=== PATIENT | female | born 1995 | race Caucasian/White ===

== ENCOUNTER 2021-05-24 20:26 | Emergency (ER) | payer BC, OTHER ==
[2021-05-24] MEDS ORDERED: Ondansetron 4 MG/2 ML SDV IVPUSH ONE (20:57)
[2021-05-24] MEDS ORDERED: HYDROmorphone 0.5 MG/0.5 ML Syringe IVPUSH ONE ×2 (20:57→22:05)
[2021-05-24] MEDS ORDERED: Dextrose 5%-0.9% NaCl 1,000 ML IV SCH (21:00)
--- NOTE | 2021-05-24 21:02 | EDM.PDOC ---
ED HPI GENERAL MEDICAL PROBLEM - General Chief Complaint: Lower Extremity Injury/Pain Stated Complaint: INJURED RIGHT ANKLE Time Seen by Provider: 05/24/21 20:59 Source of Information: Reports: Patient History Limitations: Reports: No Limitations - History of Present Illness INITIAL COMMENTS - FREE TEXT/NARRATIVE: 25-year-old female presents to the ED for evaluation of acute injury to her right ankle and lower extremity. Her was working on something in fell backwards landing directly on her right lower leg and ankle. Injury occurred about half an hour ago. She is unable to put any weight on the right foot at all. On examination there is obvious deformity at the ankle. Onset: Today, Sudden Onset Date: 05/24/21 Onset Time: 20:25 Duration: Minutes: Location: Reports: Lower Extremity, Right (Acute injury to the right lower extremity involving tib-fib and ankle) Quality: Reports: Ache, Throbbing Severity: Severe Improves with: Reports: None Worsens with: Reports: Movement Context: Reports: Trauma ( accidentally 4 tripped and fell backwards directly landing on her right ankle and foot while she was seated). 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 - Infectious Disease History Infectious Disease History: Reports: Herpes Social & Family History - Family History Family Medical History: No Pertinent Family History - Caffeine Use Caffeine Use: Reports: Coffee, Soda - Living Situation & Occupation Living situation: Reports: Occupation: Unemployed Review of Systems - Review of Systems Review Of Systems: See Below Constitutional: Reports: No Symptoms Eyes: Reports: No Symptoms Ears: Reports: No Symptoms Nose: Reports: No Symptoms Mouth/Throat: Reports: No Symptoms Respiratory: Reports: No Symptoms Cardiovascular: Reports: No Symptoms GI/Abdominal: Reports: No Symptoms Genitourinary: Reports: No Symptoms Musculoskeletal: Reports: No Symptoms Skin: Reports: No Symptoms Neurological: Reports: No Symptoms Psychiatric: Reports: No Symptoms ED EXAM, GENERAL - Physical Exam Exam: See Below Exam Limited By: No Limitations General Appearance: Alert, WD/WN, Mild Distress, Other Respiratory/Chest: No Respiratory Distress, Lungs Clear, Normal Breath Sounds, No Accessory Muscle Use Cardiovascular: Normal Peripheral Pulses, Regular Rate, Rhythm, No Edema, No Gallop, No Murmur, No Rub Peripheral Pulses: 3+: Carotid (L), Carotid (R), Posterior Tibial (L), Posterior Tibial (R), Dorsalis Pedis (L), Dorsalis Pedis (R) Extremities: Other (Examination of the right lower extremity shows no pain on palpation of the proximal fibular head. Pain midshaft of the tib-fib with crepitus. Obvious deformity right ankle suggesting fracture of the distal tibia and fibula.) Neurological: Alert ( Pulses are intact.), Oriented, CN II-XII Intact, Normal Cognition Psychiatric: Other Skin Exam: Warm (In a good deal of pain.), Dry, Intact, Normal Color, No Rash ED TRAUMA EXTREMITY PROCEDURES - Splinting Right Lower Extremity Splint Site: Low knee Ortho-Glass splint Pre-Procedure NV Status: Normal Post-Procedure NV Status: Normal Splint Material: Fiberglass Splint Design: Stirrup, Posterior Applied & Form Fitted By: Provider Provider Post-Splint Application NV Check: NV Status Normal Complications: No Course - Vital Signs Last Recorded V/S: Last Vital Signs Temp 36.7 C 05/24/21 21:04 Pulse 103 H 05/24/21 21:04 Resp 20 05/24/21 21:04 BP 106/66 05/24/21 21:04 Pulse Ox 98 05/24/21 21:04 - Orders/Labs/Meds Orders: Active Orders 24 hr Category Date Time Status Ankle Min 3V Rt [CR] Stat Exams 05/24/21 20:58 Taken Tibia Fibula Rt [CR] Stat Exams 05/24/21 20:56 Taken Durable Medical Equipment for Discharge [DME for Oth 05/24/21 22:26 Ordered Discharge] [COMM] Stat Meds: Medications Discontinued Medications Generic Name Dose Route Start Last Admin Trade Name Freq PRN Reason Stop Dose Admin Hydromorphone HCl 0.5 mg 05/24/21 20:57 05/24/21 21:33 Hydromorphone 0.5 Mg/0.5 Ml Syringe IVPUSH 05/24/21 20:58 0.5 mg ONETIME ONE Administration Hydromorphone HCl 0.5 mg 05/24/21 22:05 05/24/21 22:11 Hydromorphone 0.5 Mg/0.5 Ml Syringe IVPUSH 05/24/21 22:06 0.5 mg ONETIME ONE Administration Dextrose/Sodium Chloride 1,000 mls @ 150 mls/hr 05/24/21 21:00 05/24/21 21:33 Dextrose 5%-Normal Saline IV 150 mls/hr ASDIRECTED ANITA Administration Lorazepam 0.5 mg 05/24/21 22:06 05/24/21 22:11 Lorazepam 2 Mg/Ml Sdv IV 05/24/21 22:07 0.5 mg ONETIME ONE Administration Ondansetron HCl 4 mg 05/24/21 20:57 05/24/21 21:33 Ondansetron 4 Mg/2 Ml Sdv IVPUSH 05/24/21 20:58 4 mg ONETIME ONE Administration - Radiology Interpretation Free Text/Narrative:: 25-year-old female presents to the ED with an acute injury to her right lower extremity. Her was working on something and tripped and fell backwards landing directly on her right lower extremity and ankle. She heard and felt a crack and is unable to weight-bear. Clinically she has a fracture of the distal tibia and fibula. X-rays of the fibula and tibia to be done as well as ankle x-rays. Given Dilaudid 0.5 mg IV with Reglan 7.5 mg IV for acute pain relief. IV fluids will be D5 normal saline at 150 mils per hour. - Re-Assessments/Exams Free Text/Narrative Re-Assessment/Exam: 05/24/21 22:08 Patient has suffered a fracture of the distal tib-fib with displacement. Will repeat Dilaudid 0.5 mg IV and Ativan 0.5 mg IV to provide further pain relief. She will require placement in a posterior Ortho-Glass slab splint and stirrup splint to maintain position of fractures until follow-up with orthopedic surgeon Dr. Khoury early next week. 05/24/21 22:44 Patient was placed in an Ortho-Glass posterior slab splint and stirrup splint to maintain current position of fracture distal fibula and tibia which will require surgical management with orthopedic surgery next week. Patient tolerated the procedure very well. She will be discharged home on crutches. Percocet tabs 5/325 mg strength 1 or 2 every 4-6 hour as needed for pain relief. I will have her call Dr. Khoury's office early next week to arrange an appointment for consultation and arranging definitive surgical management. Discharged on Percocet tabs 5 to 25 mg strength 1-2 every 4-6 hours necessary for pain relief x20 tabs. Medication was dispensed through the [employer]Pad machine. Departure - Departure Time of Disposition: 23:20 Disposition: Home, Self-Care 01 Condition: Fair Clinical Impression: Closed fracture of tibia AND fibula Closed fracture of distal end of right fibula and tibia Qualifiers: Encounter type: initial encounter Qualified Code(s): S82.831A - Other fracture of upper and lower end of right fibula, initial encounter for closed fracture - Discharge Information *PRESCRIPTION DRUG MONITORING PROGRAM REVIEWED*: Not Applicable *COPY OF PRESCRIPTION DRUG MONITORING REPORT IN PATIENT BITA: Not Applicable Prescriptions: oxyCODONE HCl/Acetaminophen [Percocet 5-325 mg Tablet] 1 - 2 each PO Q4H PRN #20 tablet PRN Reason: pain relief. Instructions: Cast or Splint Care, Adult, [id number], Tibial Fracture, Adult, [id number] Referrals: PCP,None [Primary Care Provider] - Forms: ED Department Discharge Additional Instructions: Evaluation in the emergency room tonight in regards to injuries to your lower right leg that occurred from blunt trauma. X-rays reveal a fracture of the distal fibula and tibia. You were given medication in the ER for pain relief. Ortho-Glass posterior slab and stirrup splint placed to main position of current fractures. You will require definitive management with orthopedic surgical treatment. Please phone Dr. Khoury's office Wednesday to arrange an appointment for consultation and arranging for surgical time. His phone number is [phone] the interim you are to be nonweightbearing crutch walking only. Right leg should be elevated on a couple of pillows ideally above the level of your heart for the next 2 days to help reduce swelling. Pain medication to be Percocet tabs 5/325 mg strength 1 or 2 tablets every 4-6 hours necessary for pain relief ideally with some food in your stomach. May also use Motrin 600 mg every 6 hours to reduce pain and inflammation. Suggest use of MiraLAX powder 17 g or 1 scoop daily to prevent constipation from the narcotic pain medication. Sepsis Event Note (ED) - Focused Exam Vital Signs: Vital Signs Temp Pulse Resp BP Pulse Ox 05/24/21 21:04 36.7 C 103 H 20 106/66 98 - My Orders Last 24 Hours: My Active Orders 05/24/21 20:56 Tibia Fibula Rt [CR] Stat 05/24/21 20:58 Ankle Min 3V Rt [CR] Stat 05/24/21 22:26 Durable Medical Equipment for Discharge [DME for Discharge] [COMM] Stat - Assessment/Plan Last 24 Hours: My Active Orders 05/24/21 20:56 Tibia Fibula Rt [CR] Stat 05/24/21 20:58 Ankle Min 3V Rt [CR] Stat 05/24/21 22:26 Durable Medical Equipment for Discharge [DME for Discharge] [COMM] Stat
[2021-05-24 21:05] VITALS: BP 106/66; PULSE 103
[2021-05-24] MEDS ORDERED: LORazepam 2 MG/ML SDV IV ONE (22:06)
--- NOTE | 2021-05-27 10:20 | CR ---
Right tibia and fibula: AP and lateral views of the right tibia and fibula were obtained. Comparison: Prior ankle study performed on the same day. Fractures are seen within the distal diaphysis of the tibia and fibula. There is extension of the tibial fracture into the metaphysis. Angulation and mild displacement is seen. Lateral tibial plateau is minimally deformed which may be positional but difficult to exclude a fracture in this area. No additional abnormality is appreciated. Impression: 1. Distal tibial and fibular fractures. 2. Soft tissue swelling. 3. Minimal deformity of the lateral tibial plateau which may be positional but difficult to exclude injury if patient is symptomatic to this area. If symptoms are present to the knee, CT study is then recommended. Diagnostic code #3
--- NOTE | 2021-05-27 10:20 | CR ---
Right ankle: 3 views of the right ankle were obtained. Comparison: No prior ankle study is available. Fracture is noted within the distal fibular diaphysis as well as distal tibial diaphysis with extension into the metaphysis. There is angulation and mild displacement being seen within both fractures. Slight comminution is noted within both fractures. Diffuse soft tissue swelling is noted. Ankle mortise remains intact. Impression: 1. Distal tibial and fibular fractures with displacement and angulation. 2. Diffuse soft tissue swelling. Diagnostic code #3
== END 2021-05-24 23:20 | disposition home or self-care (01) ==
LOC: JD.ED 20:26
DX: S82.831A Other fracture of upper and lower end of right fibula, initial encounter for closed fracture (principal); S82.391A Other fracture of lower end of right tibia, initial encounter for closed fracture; W01.0XXA Fall on same level from slipping, tripping and stumbling without subsequent striking against object, initial encounter
CPT/HCPCS: 29505; 73590; 73610; 96374; 96375; 96376; 99283; J1170; J2060; J2405; J7042; 29515; 99284

== ENCOUNTER 2021-05-26 09:51 | Emergency (ER) | payer BC ==
--- NOTE | 2021-05-26 10:23 | EDM.PDOC ---
ED HPI GENERAL MEDICAL PROBLEM - General Chief Complaint: Lower Extremity Injury/Pain Stated Complaint: RT ANKLE PAIN /MEDS CAUSING NAUSEA/ NOT HELPING Time Seen by Provider: 05/26/21 10:22 Source of Information: Reports: Patient History Limitations: Reports: No Limitations - History of Present Illness INITIAL COMMENTS - FREE TEXT/NARRATIVE: 25-year-old female presents to the ED primarily with increased pain right lower extremity. Patient was diagnosed with a fracture distal tib-fib with displacement on May 24 through our emergency department. She was placed in an Ortho-Glass posterior slab and stirrup splint. She is finding the pain medication not quite strong enough to provide pain relief but also causing nausea and vomiting. Onset: Sudden Onset Date: 05/24/21 (Blunt trauma with her falling on her leg accidentally causing fracture of the distal tib-fib) Duration: Day(s):, Constant (With oral Percocet) Location: Reports: Lower Extremity, Right (Fractured tib-fib with displacement) Quality: Reports: Ache, Throbbing Severity: Moderate Improves with: Reports: None (8 out of 10) Worsens with: Reports: Movement Context: Reports: Trauma (Occurring 2 days ago). 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), Other (see below) (Percocet tabs 5/325 mg strength.) Right Ankle Pain Score (Numeric/FACES): 9 - Related Data Allergies Allergy/AdvReac Type Severity Reaction Status Date / Time No Known Allergies Allergy Verified 05/26/21 10:29 Home Meds: Home Meds oxyCODONE HCl/Acetaminophen [Percocet 5-325 mg Tablet] 1 - 2 each PO Q4H PRN #20 tablet 05/24/21 [Rx] Acetaminophen/Pyrilamine/Caff [Midol Caplet] 1 tab PO Q4H PRN 05/26/21 [History] Ondansetron [Zofran] 4 mg BUCCAL Q6H PRN #12 tab 05/26/21 [Rx] oxyCODONE HCl/Acetaminophen [Percocet 5-325 mg Tablet] 1 - 2 each PO Q4H PRN #20 tablet 05/26/21 [Rx] Past Medical History - Past Health History Medical/Surgical History: Denies 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 - Infectious Disease History Infectious Disease History: Reports: Herpes Social & Family History - Family History Family Medical History: No Pertinent Family History - Caffeine Use Caffeine Use: Reports: Coffee, Soda - Living Situation & Occupation Living situation: Reports: Occupation: Unemployed Review of Systems - Review of Systems Review Of Systems: See Below Constitutional: Reports: No Symptoms Eyes: Reports: No Symptoms Ears: Reports: No Symptoms Nose: Reports: No Symptoms Mouth/Throat: Reports: No Symptoms Respiratory: Reports: No Symptoms Cardiovascular: Reports: No Symptoms GI/Abdominal: Reports: No Symptoms Genitourinary: Reports: No Symptoms Musculoskeletal: Reports: Other (Currently right lower extremity is immobilized in a posterior slab stirrup splint for a fracture of the distal fibula and tibia) Skin: Reports: No Symptoms Neurological: Reports: No Symptoms Psychiatric: Reports: No Symptoms ED EXAM, GENERAL - Physical Exam Exam: See Below Exam Limited By: No Limitations General Appearance: Alert, WD/WN, Mild Distress, Other (Temperature is 36.0 with heart rate 70 and sinus respiratory 16) Eye Exam: Bilateral Eye: PERRL Extremities: Other (Patient has a known fracture of her right distal tib-fib with displacement and requires orthopedic surgical management. I opened up her splint to see if this will give her any pain relief) Neurological: Alert, Oriented, CN II-XII Intact, Normal Cognition Psychiatric: Normal Affect, Normal Mood Skin Exam: Warm, Dry, Intact, Normal Color, No Rash Course - Vital Signs Last Recorded V/S: Last Vital Signs Temp 36.0 C L 05/26/21 11:29 Pulse 84 05/26/21 11:29 Resp 12 05/26/21 11:29 BP 110/64 05/26/21 11:29 Pulse Ox 96 05/26/21 11:29 - Orders/Labs/Meds Orders: Active Orders 24 hr Category Date Time Status Peripheral IV Care [RC] . DIRECTED Care 05/26/21 10:52 Active Sodium Chloride 0.9% [Saline Flush] Med 05/26/21 10:52 Active 10 ml FLUSH ASDIRECTED PRN Peripheral IV Insertion Adult [OM.PC] Stat Oth 05/26/21 10:52 Ordered Medication Orders Sodium Chloride (Sodium Chloride 0.9% 10 Ml Syringe) 10 ml FLUSH ASDIRECTED PRN PRN Reason: Keep Vein Open Meds: Medications Generic Name Dose Route Start Last Admin Trade Name Michele PRN Reason Stop Dose Admin Sodium Chloride 10 ml 05/26/21 10:52 Sodium Chloride 0.9% 10 Ml Syringe FLUSH ASDIRECTED PRN Keep Vein Open Discontinued Medications Generic Name Dose Route Start Last Admin Trade Name Michele PRN Reason Stop Dose Admin Hydromorphone HCl 0.5 mg 05/26/21 10:52 05/26/21 10:59 Hydromorphone 0.5 Mg/0.5 Ml Syringe IVPUSH 05/26/21 10:53 0.5 mg ONETIME ONE Administration Metoclopramide HCl 7.5 mg 05/26/21 10:52 05/26/21 10:58 Metoclopramide 10 Mg/2 Ml Sdv IVPUSH 05/26/21 10:53 7.5 mg ONETIME ONE Administration Ondansetron HCl 4 mg 05/26/21 10:33 05/26/21 10:39 Ondansetron 4 Mg Tab.Dis PO 05/26/21 10:34 4 mg ONETIME ONE Administration - Radiology Interpretation Free Text/Narrative:: 25-year-old female attends the ED due to pain not being well controlled in her right lower extremity where she suffered a fracture of her distal tibia and fibula on Wednesday evening May 24. She is feeling like her splint is too tight and pinching in the back of her leg. Percocet is also making her nauseated. One is not strong enough to relieve pain. She has been taking one with Motrin 600 mg tablet every 6 hours. If she takes 2 Percocet tablets she gets extremely nauseated. I have opened up her splint right lower extremity to see if this will provide her with any temporary pain relief. - Re-Assessments/Exams Free Text/Narrative Re-Assessment/Exam: 05/26/21 10:55 I ended up removing the splint completely and reapplying a new Ortho-Glass posterior slab and stirrup splint. Once it was wrapped with William wrap she again seemed to have increased pain in her right lower extremity. I think it is just the nature of any firmness against her skin due to fracture that is causing the pain. Will give her Dilaudid 0.5 mg IV with Reglan 7.5 mg IV for acute pain relief in the ED intravenously. She did get Zofran 4 mg sublingually while in the department. Departure - Departure Time of Disposition: 11:20 Disposition: Home, Self-Care 01 Condition: Fair Clinical Impression: Pain management, Fracture of tibia AND fibula Closed fracture of distal end of right fibula and tibia Qualifiers: Encounter type: initial encounter Qualified Code(s): S82.831A - Other fracture of upper and lower end of right fibula, initial encounter for closed fracture - Discharge Information *PRESCRIPTION DRUG MONITORING PROGRAM REVIEWED*: Not Applicable *COPY OF PRESCRIPTION DRUG MONITORING REPORT IN PATIENT BITA: Not Applicable Prescriptions: oxyCODONE HCl/Acetaminophen [Percocet 5-325 mg Tablet] 1 - 2 each PO Q4H PRN #20 tablet PRN Reason: pain relief. Ondansetron [Zofran] 4 mg BUCCAL Q6H PRN #12 tab PRN Reason: nausea or vomiting Instructions: Tibial and Fibular Fractures Referrals: PCP,None [Primary Care Provider] - Forms: ED Department Discharge Additional Instructions: Evaluation in the emergency room this morning in regards to increased pain right lower extremity at sites of fracture distal tibia and fibula bones that occurred 2 days ago from blunt force trauma. Initial feeling was that the splint was too tight and pinching and on examination it was crinkled and pinching posteriorly in the calf. Therefore the splint was removed and a new posterior is slab and stirrup Ortho-Glass splint was placed but she seemed to have just as much pain once it was wrapped with the William wrap and therefore I believe it is to the actual fractures that are truly causing her pain. I have phoned [facility] and they will phone her back with an appointment time to see Dr. Khoury this week. I will refill her Percocet tabs 5/325 mg strength 1 or 2 every 4-6 hours necessary for pain relief with Zofran 4 mg sublingual every 4-6 hours necessary for nausea relief. Sepsis Event Note (ED) - Evaluation Sepsis Screening Result: No Definite Risk - Focused Exam Vital Signs: Vital Signs Temp Pulse Resp BP Pulse Ox 05/26/21 11:29 36.0 C L 84 12 110/64 96 05/26/21 10:10 36.0 C L 78 16 109/62 97 - My Orders Last 24 Hours: My Active Orders 05/26/21 10:52 Peripheral IV Care [RC] . DIRECTED Sodium Chloride 0.9% [Saline Flush] 10 ml FLUSH ASDIRECTED PRN Peripheral IV Insertion Adult [OM.PC] Stat - Assessment/Plan Last 24 Hours: My Active Orders 05/26/21 10:52 Peripheral IV Care [RC] . DIRECTED Sodium Chloride 0.9% [Saline Flush] 10 ml FLUSH ASDIRECTED PRN Peripheral IV Insertion Adult [OM.PC] Stat
[2021-05-26] MEDS ORDERED: Ondansetron 4 MG Tab.DIS PO ONE (10:33)
[2021-05-26] MEDS ORDERED: Metoclopramide 10 MG/2 ML SDV IVPUSH ONE (10:52)
[2021-05-26] MEDS ORDERED: HYDROmorphone 0.5 MG/0.5 ML Syringe IVPUSH ONE (10:52)
[2021-05-26] MEDS ORDERED: Sodium Chloride 0.9% 10 ML Syringe FLUSH PRN (10:52)
[2021-05-26 11:29] VITALS: BP 110/64; PULSE 84
== END 2021-05-26 11:25 | disposition home or self-care (01) ==
LOC: JD.ED 09:51
DX: S82.831A Other fracture of upper and lower end of right fibula, initial encounter for closed fracture (principal); S82.201A Unspecified fracture of shaft of right tibia, initial encounter for closed fracture; X58.XXXA Exposure to other specified factors, initial encounter
CPT/HCPCS: 29515; 96374; 96375; 99283; A9270; J1170; J2765; 99284

== ENCOUNTER 2021-05-29 10:02 | Day surgery (SDC) | payer BC ==
[~2021-05-29 10:02] MED LIST: Lactated Ringers 1,000 ML IV SCH; Lidocaine 1% 4 ML ONE; Lidocaine 1%/Sod Bicarbonate in NS 8.4% 1 ML Syringe IDERM PRN; Midazolam 1 MG/ML 2 ML SDV ONE; Propofol 200 MG/20 ML SDV ONE; Sodium Chloride 0.9% 10 ML Syringe FLUSH PRN; fentaNYL 100 MCG/2 ML SDV ONE
[2021-05-29] MEDS ORDERED: HYDROmorphone 0.5 MG/0.5 ML Syringe IVPUSH ONE (11:13)
[2021-05-29] MEDS ORDERED: Bupivacaine 0.25% 10 ML SDV ONE (11:19)
--- NOTE | 2021-05-29 11:25 | PCM.PREANE ---
Preanesthetic Assessment - Procedure Proposed Procedure: closed vs open reduction right distal tib fib - Anesthesia/Transfusion/Family Hx Anesthesia History: Prior Anesthesia Without Reaction Family History of Anesthesia Reaction: No Transfusion History: No Prior Transfusion(s) - Review of Systems General: No Symptoms Pulmonary: Shortness of Breath (with crutches) Cardiovascular: No Symptoms Gastrointestinal: Nausea (with oxycodone) Neurological: No Symptoms Other: Reports: None - Physical Assessment NPO Status Date: 05/28/21 NPO Status Time: 21:00 Vital Signs: Last Vital Signs Temp 99.2 F 05/29/21 10:20 Pulse 91 05/29/21 10:20 Resp 16 05/29/21 10:20 BP 108/70 05/29/21 10:20 Pulse Ox 98 05/29/21 10:20 Height: 5 ft 2 in Weight: 44.906 kg ASA Class: 1 Mental Status: Alert & Oriented x3 Airway Class: Mallampati = 1 Dentition: Reports: Normal Dentition Thyro-Mental Finger Breadths: 3 Mouth Opening Finger Breadths: 3 ROM/Head Extension: Full Lungs: Clear to Auscultation, Normal Respiratory Effort Cardiovascular: Regular Rate, Regular Rhythm - Allergies Allergies/Adverse Reactions: Allergies Allergy/AdvReac Type Severity Reaction Status Date / Time No Known Allergies Allergy Verified 05/28/21 15:07 - Blood Blood Available: No - Acknowledgements Anesthesia Type Planned: General Anesthesia Pt an Appropriate Candidate for the Planned Anesthesia: Yes Alternatives and Risks of Anesthesia Discussed w Pt/Guardian: Yes Pt/Guardian Understands and Agrees with Anesthesia Plan: Yes PreAnesthesia Questionnaire - Past Health History Medical/Surgical History: Denies Medical/Surgical History HEENT History: Reports: Impaired Vision Other HEENT History: wears glasses while driving at [facility] Cardiovascular History: Reports: None Respiratory History: Reports: Asthma (history- grew out of) Gastrointestinal History: Reports: Chronic Constipation Genitourinary History: Reports: STD Other Genitourinary History: genital herpes one time ROLL HAND History: Reports: , Other (See Below) Other OB/BYN History: HSV. Musculoskeletal History: Reports: Fracture Neurological History: Reports: Migraines Psychiatric History: Reports: Depression Endocrine/Metabolic History: Reports: None Hematologic History: Reports: None Immunologic History: Reports: None Oncologic (Cancer) History: Reports: None Dermatologic History: Reports: Other (See Below) Other Dermatologic History: herpes simplex virus - Infectious Disease History Infectious Disease History: Reports: None - Past Surgical History Head Surgeries/Procedures: Reports: None Cardiovascular Surgical History: Reports: None Respiratory Surgical History: Reports: None GI Surgical History: Reports: None Female Surgical History: Reports: None Male Surgical History: Reports: None Endocrine Surgical History: Reports: None Neurological Surgical History: Reports: None Musculoskeletal Surgical History: Reports: Arthroscopic Knee Oncologic Surgical History: Reports: None Dermatological Surgical History: Reports: None - SUBSTANCE USE Tobacco Use Status *Q: Former Tobacco User Tobacco Use Within Last Twelve Months: No Second Hand Smoke Exposure: Yes Days Per Week of Alcohol Use: 0 Recreational Drug Use History: No - HOME MEDS Home Medications: Home Meds Ondansetron [Zofran] 4 mg BUCCAL Q6H PRN #12 tab 05/26/21 [Rx] Cyclobenzaprine [Flexeril] 10 mg PO TID PRN 05/28/21 [History] Aspirin [Aspirin EC] 325 mg PO BID #84 tab 05/29/21 [Rx] Hydrocodone/Acetaminophen [HYDROcodone-Acetaminophen 5-325 MG] 1 - 2 each PO Q6H PRN #40 tablet 05/29/21 [Rx] oxyCODONE 5 mg PO ASDIRECTED PRN 05/29/21 [History] - CURRENT (IN HOUSE) MEDS Current Meds: Current Medications Lactated Ringer's (Ringers, Lactated) 1,000 mls @ 125 mls/hr IV ASDIRECTED ANITA Stop: 05/29/21 23:00 Lidocaine/Sodium Bicarbonate (Lidocaine 1%/Sod Bicarbonate In Ns 8.4% 1 Ml Syringe) 0.25 ml IDERM ONETIME PRN PRN Reason: Prior to IV Start Stop: 05/29/21 18:00 Sodium Chloride (Sodium Chloride 0.9% 10 Ml Syringe) 10 ml FLUSH ASDIRECTED PRN PRN Reason: Keep Vein Open Stop: 05/29/21 18:00 Discontinued Medications Fentanyl (Fentanyl 100 Mcg/2 Ml Sdv) Confirm Administered Dose 100 mcg .ROUTE .STK-MED ONE Stop: 05/29/21 09:56 Hydromorphone HCl (Hydromorphone 0.5 Mg/0.5 Ml Syringe) 0.5 mg IVPUSH ONETIME ONE Stop: 05/29/21 11:14 Lidocaine HCl (Xylocaine-Mpf 1%) Confirm Administered Dose 4 mls @ as directed .ROUTE .STK-MED ONE Stop: 05/29/21 09:56 Midazolam HCl (Midazolam 1 Mg/Ml 2 Ml Sdv) Confirm Administered Dose 2 mg .ROUTE .STK-MED ONE Stop: 05/29/21 09:56 Propofol (Propofol 200 Mg/20 Ml Sdv) Confirm Administered Dose 200 mg .ROUTE .STK-MED ONE Stop: 05/29/21 09:56
[2021-05-29] MEDS ORDERED: Ondansetron 4 MG/2 ML SDV ONE (11:32)
[2021-05-29] MEDS ORDERED: Ondansetron 4 MG/2 ML SDV IVPUSH PRN (11:47)
[2021-05-29] MEDS ORDERED: fentaNYL 100 MCG/2 ML SDV IVPUSH PRN (11:47)
--- NOTE | 2021-05-29 12:32 | PCM.POSTAN ---
POST ANESTHESIA ASSESSMENT - MENTAL STATUS Mental Status: Alert, Oriented - VITAL SIGNS Vital Signs: Last Vital Signs Temp 99.2 F 05/29/21 10:20 Pulse 91 05/29/21 10:20 Resp 16 05/29/21 10:20 BP 108/70 05/29/21 10:20 Pulse Ox 98 05/29/21 10:20 1223 97 10 97.6 127/89 100% - RESPIRATORY Respiratory Status: Respiratory Rate WNL, Airway Patent, O2 Saturation Stable, Supplemental Oxygen - CARDIOVASCULAR CV Status: Pulse Rate WNL, Blood Pressure Stable - GASTROINTESTINAL GI Status: No Symptoms - PAIN Pain Score: 5 (medicated) - POST OP HYDRATION Hydration Status: Adequate & Stable
--- NOTE | 2021-05-29 12:33 | CR ---
Right tibia and fibula: AP and lateral views of the right tibia and fibula were obtained utilizing C-arm device. Study was obtained during operative reduction and casting. Comparison: Prior right ankle and tibia/fibula study of 05/24/21. Distal fibular diaphyseal fracture and distal tibial fracture are seen. Tibial fracture extends into the epiphyseal plate. Fractures show evidence of reduction from previous studies. Placement of fiberglass cast is noted. Impression: 1. Procedural study as noted above. Diagnostic code #2
[2021-05-29] MEDS: HYDROmorphone 0.5 MG/0.5 ML Syringe IVPUSH PRN ×2 (13:00→13:29)
--- NOTE | 2021-05-29 13:01 | PCM48HPAN ---
Post Anesthesia Note - EVALUATION WITHIN 48HRS OF ANESTHETIC Vital Signs in Normal Range: Yes Patient Participated in Evaluation: Yes Respiratory Function Stable: Yes Airway Patent: Yes Cardiovascular Function Stable: Yes Hydration Status Stable: Yes Pain Control Satisfactory: Yes (getting more pain meds-rests) Nausea and Vomiting Control Satisfactory: Yes Mental Status Recovered: Yes Vital Signs: Last Vital Signs Temp 99.2 F 05/29/21 10:20 Pulse 91 05/29/21 10:20 Resp 16 05/29/21 10:20 BP 108/70 05/29/21 10:20 Pulse Ox 98 05/29/21 10:20
[2021-05-29 14:55] VITALS: BP 119/80; PULSE 87
--- NOTE | 2021-06-10 13:52 | PCM.OPNOTE ---
- General Post-Op/Procedure Note Date of Surgery/Procedure: 05/29/21 Operative Procedure(s): closed reduction and casting of right distal tibia and fibula fractures Pre Op Diagnosis: right distal tibia and fibula fractures Post-Op Diagnosis: Same Anesthesia Technique: General LMA Primary Surgeon: Jeffrey Khoury Anesthesia Provider: Sidra Sherman [employer] Instructor: Pratima Wheeler in mLs: 0 Complications: None Condition: Good
--- NOTE | 2021-06-10 14:15 | OR ---
DATE OF OPERATION: 05/29/2021 SURGEON: Jeffrey Khoury MD OPERATION PERFORMED: Closed reduction and casting of right distal tibia and fibula fractures. PREOPERATIVE DIAGNOSIS: Right distal tibial shaft and fibular shaft fractures. POSTOPERATIVE DIAGNOSIS: Right distal tibial shaft and fibular shaft fractures. ANESTHESIA: General LMA. ANESTHESIA PROVIDER: Sidra Sherman CRNA DEVELOPMENT INTERN: Cam Da Silva RN ESTIMATED BLOOD LOSS: Not applicable. COMPLICATIONS: None. CONDITION: Stable. DESCRIPTION OF PROCEDURE: The patient was identified in the preoperative holding area. Proper site was marked and identified by the surgeon. The patient was taken back to the operating theater where after adequate anesthesia OR time-out was performed. At this time, a closed reduction maneuver was done, undertaken to the right distal tibia and fibular fractures and had near complete anatomic reduction of the long axis of the tibia in both AP and lateral views. At this time, it was decided that we would be able to do a long-leg cast. Cast padding was applied after stockinette. At this time, the cast was applied and was molded utilizing C-arm fluoroscopy so that it was near anatomic alignment of the distal tibia and fibular fractures. Once the cast had set, the patient was sent to the PACU in stable condition. We will follow up for x-ray through cast in 2 weeks' time. MMODAL /[id number]
== END 2021-05-29 14:45 | disposition home or self-care (01) ==
LOC: JD.SDS 10:02
PROVIDERS: ATTEND Orthopaedic Surgery
DX: S82.301A Unspecified fracture of lower end of right tibia, initial encounter for closed fracture (principal); S82.831A Other fracture of upper and lower end of right fibula, initial encounter for closed fracture; Z87.891 Personal history of nicotine dependence; Z79.899 Other long term (current) drug therapy; Z79.82 Long term (current) use of aspirin
CPT/HCPCS: 27788; 27825; 76000; J1170; J2250; J2405; J2704; J3010; J7120; 01390; J3490

== ENCOUNTER 2025-05-21 15:03 | Emergency (ER) | payer BC ==
[2025-05-21] MEDS ORDERED: Sodium Chloride 0.9% 10 ML Syringe FLUSH PRN (16:16)
[2025-05-21 16:54] LABS: BASOPHILS ABSOLUTE AUTO 0.1 K/mm3 (0.0-0.2); BASOPHILS PERCENT AUTO 1.8 % (0.0-1.0); EOSINOPHILS ABSOLUTE AUTO 0.1 K/mm3 (0.0-0.4); EOSINOPHILS PERCENT AUTO 1.2 % (0.0-6.0); IMMATURE GRAN ABSOLUTE AUTO 0.01 K/mm3 (0.00-0.05); IMMATURE GRAN PERCENT AUTO 0.2 % (0.0-0.4); LYMPHOCYTES ABSOLUTE AUTO 1.9 K/mm3 (1.0-4.8); LYMPHOCYTES PERCENT AUTO 33.3 % (24.0-44.0); MEAN PLATELET VOLUME 9.1 fl (9.4-12.3); MONOCYTES ABSOLUTE AUTO 0.4 K/mm3 (0.0-0.8); MONOCYTES PERCENT AUTO 6.8 % (0.0-8.0); NEUTROPHILS ABSOLUTE AUTO 3.2 K/mm3 (1.8-7.7); NEUTROPHILS PERCENT AUTO 56.7 % (41.0-71.0); NRBC ABSOLUTE 0.00 (0.00-0.02); NRBC PERCENT 0.0 % (0.0-0.2); PLATELET COUNT,PLT 204 K/mm3 (150-400); RED BLOOD CELL COUNT 4.71 M/mm3 (4.10-5.30); WHITE BLOOD CELL COUNT,WBC 5.71 K/mm3 (3.9-11.3)
[2025-05-21 17:20] LABS: A/G RATIO 1.6 (1-2); ALANINE AMINOTRANSFERASE,ALT 17.0 U/L (14-59); ASPARTATE AMNIOTRANSFERASE,AST 16.0 U/L (15-37); BILIRUBIN TOTAL 0.4 mg/dL (0.2-1.0); BLOOD UREA NITROGEN,BUN 12.0 mg/dL (7-18); CARBON DIOXIDE,CO2 25.0 mEq/L (21-32); CHLORIDE,CL 105.0 mEq/L (98-107); CREATININE 0.7 mg/dL (0.55-1.02); EST CRCL DRUG DOSING (CG) 92.1 mL/min; ESTIMATED GFR 119.0 mL/min (>60); GLUCOSE RANDOM 86.0 mg/dL (70-99); POTASSIUM,K 3.6 mEq/L (3.5-5.1); PROTEIN TOTAL,TP 6.5 g/dl (6.4-8.2); SODIUM,NA 140.0 mEq/L (136-145); TROPONIN I HIGH SENSITIVITY 10.0 pg/mL (<=51)
[2025-05-21 18:31] VITALS: BP 122/78; PULSE 83
== END 2025-05-21 17:38 | disposition home or self-care (01) ==
LOC: JD.ED 15:03
DX: R42 Dizziness and giddiness (principal)
CPT/HCPCS: 36415; 80053; 83735; 84484; 85025; 93005; 93010; 99284; 99285